=== PATIENT | male | born 1980 | race Caucasian/White ===

== ENCOUNTER 2020-03-12 01:47 | Emergency (ER) | payer SELFPAY ==
[2020-03-12] VITALS (41 sets, daily range): BP systolic 112–156; BP diastolic 52–92; PULSE 55–100; RESP 10–26; TEMP 36.7; O2SAT 90–98; BMI 26.4
--- NOTE | 2020-03-12 01:51 | XR_ITS ---
WS: [id number] Exam: XR chest 1V portable [id number] Date/Time of Exam: 03/12/2020 1:53 AM Reason For Exam: Altered mental status Comparison 03/28/2019. Findings: The lungs are clear and fully expanded. Costophrenic angles are sharp. No infiltrates. Bronchovascula r relief appears normal. Cardiac silhouette is unremarkable. Bony elements are intact. XR/XR chest 1V portable [id number] IMPRESSION: Unremarkable chest radiograph.
--- NOTE | 2020-03-12 01:51 | CTR_ITS ---
PROCEDURE INFORMATION: Exam: CT Head Without Contrast Exam date and time: 03/12/2020 1:53 AM Age: 40 years old Clinical indication: Altered mental status/memory loss; Confusion or disorientation TECHNIQUE: Imaging protocol: Computed tomography of the head without contrast. Radiation optimization: All CT scans at this facility use at least one of these dose optimization techniques: automated exposure control; mA and/or kV adjustment per patient size (includes targeted exams where dose is matched to clinical indication); or iterative reconstruction. COMPARISON: CT head wo con* [id number] 01/30/2018 11:48 PM RADIATION DOSE METRICS: Total DLP (mGy-cm): 912.22 FINDINGS: Brain: No acute intracranial hemorrhage or mass effect. No definite acute infarct by CT. MRI could be more sensitive/specific for detection, as clinically directed. Cerebral ventricles: Ventricle size is normal for age. Bones/joints: No definite acute skull fracture. Paranasal sinuses: Included paranasal sinuses are essentially clear. Mastoid air cells: No significant acute finding. CT/CT head wo con* [id number] IMPRESSION: 1. No acute intracranial hemorrhage or mass effect. 2. No definite acute infarct by CT, see above. 3. Other findings discussed above. Radiation Dose CTDIVOL = (mGy): DLP = 912.22 (mGy-cm)
--- NOTE | 2020-03-12 01:52 | ECG_ITS ---
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
[2020-03-12 02:12] LABS: Basophils % 0.8 %; Eosinophils # 0.1 10^3/uL (0.0-0.8); Eosinophils % 1.8 %; Hematocrit 43.2 % (42.0-52.0); Hemoglobin 14.4 g/dL (11.7-16.6); Lymphocytes # 1.9 10^3/uL (0.8-4.8); Lymphocytes % 38.8 %; Mean Corpuscular HGB Conc 33.3 g/dL (30.0-36.0); Mean Corpuscular Hemoglobin 32.2 pg (28.0-34.0); Mean Corpuscular Volume 96.6 fL (80-94); Mean Platelet Volume 10.7 fL (7.4-10.4); Monocytes # 0.6 10^3/uL (0.2-0.9); Monocytes % 13.1 %; Neutrophils # 2.23 10^3/uL (1.8-7.7); Neutrophils % 45.5 %; Nucleated Red Blood Cells % 0 %; Platelet Count 182 10^3/cmm (130-400); Red Blood Count 4.47 10^6/uL (4.1-5.3); Red Cell Distribution Width 12.3 % (12.1-15.1); White Blood Count 4.9 10^3/uL (4.0-10.0)
[2020-03-12] MEDS: sodium chloride 0.9% 1,000 ML 100 ML IV (02:15)
[2020-03-12] MEDS: ondansetron 2 mg/ML SDV 2 mL 4 MG IVP (02:15)
[2020-03-12] MEDS: naloxone 0.4 mg/ml SDV IVP (02:22)
--- NOTE | 2020-03-12 02:25 | W.ED.OVERDOS ---
HPI - Overdose General: Chief Complaint: Overdose Stated Complaint: overdose Time Seen by Provider: 03/12/20 01:50 Source: patient and EMS Mode of arrival: EMS Limitations: altered mental status History of Present Illness: HPI Narrative: Josias is a 40-year-old male who is brought in by EMS with report of overdose. Patient apparently used heroin today an effort to get high. He states he has not used in a long time. He was found by friends who did not detect a pulse and started CPR. Is unclear whether he truly had a loss of pulse. CPR was done for less than a minute and someone, it is believed a figure model administered intranasal Narcan. After 1 dose of intranasal Narcan the patient immediately arose and admitted to the the drug use. Patient is adamant he was not trying to hurt or kill himself. He states he was just trying to get high. He denies any other ingestions such as alcohol, benzodiazepines or other illicit drug. Review of Systems Const: Denies: fever(s), chills, body aches, fatigue, malaise or diaphoresis Eyes: Denies: change in vision, blurry vision, photophobia, eye discomfort, eye discharge, eye redness or yellow eyes ENMT: Denies: throat pain, odynophagia, hoarseness, swelling of lips/tongue, ear or mastoid pain, ear discharge, change in hearing or nasal discharge Card: Denies: chest pain, palpitations, irregular heart rhythm, edema, lightheadedness, syncope, pre-syncope, dyspnea on exertion or orthopnea Resp: Denies: dyspnea, productive cough, non-productive cough, wheezing, hemoptysis or chest congestion GI: Denies: abdominal pain, nausea, vomiting, hematemesis, coffee ground emesis, heartburn, diarrhea, constipation, GI cramping, hematochezia or melena : Denies: flank pain, dysuria, urinary frequency, urinary urgency or hematuria Musc: Denies: neck pain, back pain, extremity pain, extremity swelling, joint pain, joint swelling, joint redness, joint warmth or joint stiffness Skin/Breast: Denies: rash, pruritus, erythema, skin pain or skin tenderness Neuro: Denies: headache(s), numbness in extremities, weakness in extremities, sensory changes, lack of coordination, difficulty walking, dizziness, vertigo, confusion, Slurred speech present or seizure-like activity Davon/Lymph: Denies: easy bruising, easy bleeding, petechiae, purpura or enlarged lymph nodes All/Imm: Denies: urticaria, throat swelling, tongue swelling, facial swelling or acute wheezing PFSH ED PFSH: Medical History (Updated 03/12/20 @ 06:09 by Ariadna Cisneros) Hepatitis C Physical Exam Const: COMMON NORMALS: no acute distress, no limitations and alert GENERAL APPEARANCE: cooperative HENMT: COMMON NORMALS: normocephalic, atraumatic, external ears normal, EAC's normal and Normal external nose present HEAD & SCALP: normal to inspection, normocephalic and atraumatic FACE & SINUS: normal facial exam and face symmetric NOSE: Normal external nose present and Normal nares present EXTERNAL EAR: Yes external ears normal EXTERNAL AUDITORY CANAL: EAC's normal MOUTH: Normal oral and palatal mucosa present, lip normal and tongue normal Eye: COMMON NORMALS: Equal, round and reactive pupils present and conjunctivae normal GENERAL EYE: appearance normal, both eyes and all related structures ALIGNMENT: Yes alignment normal PERIORBITAL: periorbital findings normal EYELID: eyelids normal CONJUNCTIVA: Yes conjunctivae normal SCLERA: sclerae normal PUPIL: Yes Equal, round and reactive pupils present Neck/C-Spine: COMMON NORMALS: full ROM, no lymphadenopathy, supple, no meningeal signs and no JVD GENERAL: Yes normal visual inspection and Yes trachea midline Chest: COMMONS NORMALS: normal inspection of the chest and normal palpation of entire chest wall Resp: COMMON NORMALS: normal respiratory effort, No retractions, No use of accessory muscles and clear to auscultation bilaterally EFFORT & INSPECTION: Yes able to speak in complete sentences and Yes symmetric chest movement AUSCULTATION: clear to auscultation bilaterally, no crackles, no rales, no rhonchi and no wheezes Cardio: COMMON NORMALS: no JVD, regular rate, regular rhythm, S1 normal heart sound present and S2 normal heart sound present RATE: regular rate RHYTHM: regular rhythm HEART SOUNDS: S1 normal heart sound present, S2 normal heart sound present, no click, no gallops, no murmurs and no rubs GI: COMMON NORMALS: Soft to palpation and No hepatosplenomegaly present PALPATION: Yes Soft to palpation, No Tenderness to palpation present (GI), No Guarding due to palpation present (GI), No Rigid due to palpation, Yes No hepatosplenomegaly present, No Hernia present, No Palpable mass present and No Pulsatile mass present : COMMON NORMALS: Yes no CVA tenderness BLADDER/KIDNEY EXAM: Yes no CVA tenderness Back/Pelvis: COMMON NORMALS: no CVA tenderness, thoracic and lumbar spine normal to inspection, no thoracic nor lumbar tenderness and thoraco-lumbar ROM normal Extremity: COMMON NORMALS: normal to inspection, full ROM, capillary refill normal, no joint enlargement, no clubbing, cyanosis or edema and no calf tenderness Neuro: COMMON NORMALS: CN's II-XII intact bilaterally, moves all extremities, no focal motor deficits and no sensory deficits noted SENSORIUM/ORIENTATION: Yes alert MENINGEAL SIGNS: Yes no meningeal signs SPEECH: speech normal Psych: COMMON NORMALS: mental status grossly normal, Normal thought process present, cooperative, normal affect, speech normal and activity/motor behavior normal SPEECH: Yes normal speech THOUGHT PROCESS: Normal thought process present Skin: COMMON NORMALS: no rashes or lesions noted, turgor normal, no jaundice, no petechiae and no mottling GENERAL SKIN EXAM: no rashes or lesions noted and turgor normal Course Vital Signs: Vital signs: Vital Signs Temperature 98.0 F 03/12/20 01:52 Pulse Rate 81 03/12/20 06:00 Respiratory Rate 14 03/12/20 06:00 Blood Pressure 135/56 03/12/20 06:00 Pulse Oximetry 96 03/12/20 06:00 MDM - Overdose MDM Narrative: Medical decision making narrative: Arrival -Josias is a 40-year-old male who comes in with altered mental status. He had 2 minutes of bystander CPR but believes he was just oversedated by heroin. He denies using heroin to kill himself but instead just to get high. Vital signs are stable. We have given him Narcan 0.4 mg in total in 2 divided doses. He was able to wake up easily with this. With this he is alert and oriented and had no complaints. He denies chest pain, abdominal pain and did not have any other complaint. We will initiated altered status/overdose work-up. 0607 -Josias has maintained his mental status of a GCS of 14 since arriving. He is not necessitated any further Narcan. Patient though will not wake up long enough or cooperate long enough for me to feel safe sending him home. I do not believe he will need emergent intervention at this time but until he can wake up and completely cooperate consistently I believe he will need to be observed. I reviewed the case in full with Dr. Sarmiento and he agrees to admission. Further care will be dictated by him. Lab Data: Attestation: I reviewed the patient's lab results. Labs: Lab Results 03/12/20 03/12/20 03/12/20 Range/Units 02:08 02:08 02:08 WBC 4.9 (4.0-10.0) 10^3/ uL RBC 4.47 (4.1-5.3) 10^6/u L Hgb 14.4 (11.7-16.6) g/dL Hct 43.2 (42.0-52.0) % MCV 96.6 H (80-94) fL MCH 32.2 (28.0-34.0) pg MCHC 33.3 (30.0-36.0) g/dL RDW 12.3 (12.1-15.1) % Plt Count 182 (130-400) 10^3/c mm MPV 10.7 H (7.4-10.4) fL Neut % (Auto) 45.5 % Lymph % (Auto) 38.8 % [place] % (Auto) 13.1 % Eos % (Auto) 1.8 % Baso % (Auto) 0.8 % Neut # (Auto) 2.23 (1.8-7.7) 10^3/u L Lymph # (Auto) 1.9 (0.8-4.8) 10^3/u L [place] # (Auto) 0.6 (0.2-0.9) 10^3/u L Eos # (Auto) 0.1 (0.0-0.8) 10^3/u L Baso # (Auto) 0.0 (0.0-0.1) 10^3/u L Nucleated RBC % (a uto) 0 % Nucleated RBCs # 0.0 /100WBC PT (12.1-14.9) SECO NDS INR (0.8-1.2) APTT (23.9-36.7) SECO NDS Sodium 139 (136-145) mmol/L Potassium 4.1 (3.5-5.1) mmol/L Chloride 102 (98-107) mmol/L Carbon Dioxide 28 (22-29) mmol/L Anion Gap 13.1 (5-19) BUN 14 (6-20) mg/dL Creatinine 1.1 (0.7-1.2) mg/dL GFR Calculation 74.9 L (90-130) mL/min Glucose 112 (65-115) mg/dL Calculated Osmolal ity 289 (285-295) mOsm/k g Calcium 9.8 (8.5-10.5) mg/dL Magnesium 2.3 (1.7-2.3) mg/dL Total Bilirubin 0.5 (0.15-1.2) mg/dL AST 305 H (0-40) U/L ALT 470 H (0-41) U/L Alkaline Phosphata se 151 H (40-130) IU/L Creatine Kinase 495 H* (39-308) U/L Troponin T Baselin e 6 (0-15) ng/L Total Protein 7.5 (6.6-8.7) g/dL Albumin 4.5 (3.5-5.2) g/dL Globulin 3.0 (1.3-4.6) g/dL Ethyl Alcohol < 10 (0-10) mg/dL Hepatitis A IgM Ab (Nonreactive) Hep Bs Antigen (Nonreactive) Hep Bs Antibody (0-8.5) Hep B Core Total A b (Nonreactive) Hepatitis C Antibo dy (Nonreactive) 03/12/20 03/12/20 Range/Units 02:10 02:15 WBC (4.0-10.0) 10^3/ uL RBC (4.1-5.3) 10^6/u L Hgb (11.7-16.6) g/dL Hct (42.0-52.0) % MCV (80-94) fL MCH (28.0-34.0) pg MCHC (30.0-36.0) g/dL RDW (12.1-15.1) % Plt Count (130-400) 10^3/c mm MPV (7.4-10.4) fL Neut % (Auto) % Lymph % (Auto) % [place] % (Auto) % Eos % (Auto) % Baso % (Auto) % Neut # (Auto) (1.8-7.7) 10^3/u L Lymph # (Auto) (0.8-4.8) 10^3/u L [place] # (Auto) (0.2-0.9) 10^3/u L Eos # (Auto) (0.0-0.8) 10^3/u L Baso # (Auto) (0.0-0.1) 10^3/u L Nucleated RBC % (a uto) % Nucleated RBCs # /100WBC PT 14.90 (12.1-14.9) SECO NDS INR 1.13 (0.8-1.2) APTT 30.3 (23.9-36.7) SECO NDS Sodium (136-145) mmol/L Potassium (3.5-5.1) mmol/L Chloride (98-107) mmol/L Carbon Dioxide (22-29) mmol/L Anion Gap (5-19) BUN (6-20) mg/dL Creatinine (0.7-1.2) mg/dL GFR Calculation (90-130) mL/min Glucose (65-115) mg/dL Calculated Osmolal ity (285-295) mOsm/k g Calcium (8.5-10.5) mg/dL Magnesium (1.7-2.3) mg/dL Total Bilirubin (0.15-1.2) mg/dL AST (0-40) U/L ALT (0-41) U/L Alkaline Phosphata se (40-130) IU/L Creatine Kinase (39-308) U/L Troponin T Baselin e (0-15) ng/L Total Protein (6.6-8.7) g/dL Albumin (3.5-5.2) g/dL Globulin (1.3-4.6) g/dL Ethyl Alcohol (0-10) mg/dL Hepatitis A IgM Ab Non-reactive (Nonreactive) Hep Bs Antigen Non-reactive (Nonreactive) Hep Bs Antibody > 1000.0 H (0-8.5) Hep B Core Total A b Non-reactive (Nonreactive) Hepatitis C Antibo dy Reactive H (Nonreactive) Imaging Data^: CXR: Attestation: I personally reviewed and interpreted this imaging study as follows: My impression: No acute cardiopulmonary findings. CT Head: Radiologist's impression: [facility] [address] [place] [address] CT Scan Report Signed Patient: Josias Murillo #: [id number] : 1980Acct#:[id number] Age/Sex: 40 / MADM Date: 03/12/20 Loc: ERRoom/Bed: Attending Dr: Ordering Provider/Ordering MD: Ariadna Cisneros DO Date of Service: 03/12/20 Procedure(s): CT head wo con* [id number] Accession Number(s): [id number] Report Number: [id number] PROCEDURE INFORMATION: Exam: CT Head Without Contrast Exam date and time: 03/12/2020 1:53 AM Age: 40 years old Clinical indication: Altered mental status/memory loss; Confusion or disorientation TECHNIQUE: Imaging protocol: Computed tomography of the head without contrast. Radiation optimization: All CT scans at this facility use at least one of these dose optimization techniques: automated exposure control; mA and/or kV adjustment per patient size (includes targeted exams where dose is matched to clinical indication); or iterative reconstruction. COMPARISON: CT head wo con* [id number] 01/30/2018 11:48 PM RADIATION DOSE METRICS: Total DLP (mGy-cm): 912.22 FINDINGS: Brain: No acute intracranial hemorrhage or mass effect. No definite acute infarct by CT. MRI could be more sensitive/specific for detection, as clinically directed. Cerebral ventricles: Ventricle size is normal for age. Bones/joints: No definite acute skull fracture. Paranasal sinuses: Included paranasal sinuses are essentially clear. Mastoid air cells: No significant acute finding. CT/CT head wo con* [id number] IMPRESSION: 1. No acute intracranial hemorrhage or mass effect. 2. No definite acute infarct by CT, see above. 3. Other findings discussed above. Radiation Dose CTDIVOL = (mGy): DLP = 912.22 (mGy-cm) Dictated By:Davie Guerrero MD Signed By:Davie Guerrero MDSigned Date/Time:03/12/20305 DD/ 4 EKG Data^: EKG 1: Attestation: I personally reviewed and interpreted this EKG as follows: EKG interpretation date: 03/12/20 EKG interpretation time: 02:34 Interpretation: Normal sinus rhythm at 74 beats a minute, normal intervals, incomplete right bundle branch block, nonspecific ST and T wave changes. EKG 2: Attestation: I personally reviewed and interpreted this EKG as follows: EKG interpretation date: 03/12/20 EKG interpretation time: 04:21 Interpretation: Normal sinus rhythm at 72 beats a minute, incomplete right bundle much block, normal axis, no acute ST-T wave changes. Discharge Plan Discharge Patient Disposition: Placed in Observation Clinical Impression: Drug overdose Condition: Stable Coding Level of Care Code ED Crystal Evaluator for Chg Fwd Exam Comprehensive
--- NOTE | 2020-03-12 02:29 | PC.NURSE ---
patient unable to answer SI questions for nurse during assessment. patient drifting in and out of sleep.
[2020-03-12 02:34] LABS: Alanine Aminotransferase 470 U/L (0-41); Albumin Level 4.5 g/dL (3.5-5.2); Alkaline Phosphatase 151 IU/L (40-130); Anion Gap 13.1 (5-19); Aspartate Amino Transferase 305 U/L (0-40); Blood Urea Nitrogen 14 mg/dL (6-20); Calcium 9.8 mg/dL (8.5-10.5); Carbon Dioxide 28 mmol/L (22-29); Chloride 102 mmol/L (98-107); Glomerular Filtration Rate 74.9 mL/min (90-130); Glucose 112 mg/dL (65-115); Magnesium 2.3 mg/dL (1.7-2.3); Osmolality Calculated 289 mOsm/kg (285-295); Potassium 4.1 mmol/L (3.5-5.1); Sodium 139 mmol/L (136-145); Total Bilirubin 0.5 mg/dL (0.15-1.2); Total Protein 7.5 g/dL (6.6-8.7)
[2020-03-12 02:35] LABS: Alcohol Level < 10 mg/dL (0-10); Creatine Phosphokinase 495 U/L (39-308)
[2020-03-12 02:36] LABS: Troponin(5th) Baseline 6 ng/L (0-15)
--- NOTE | 2020-03-12 02:40 | PC.NURSE ---
patient to CT
[2020-03-12 03:50] LABS: Hepatitis A Antibody IgM Non-Reactive (Nonreactive); Hepatitis B Core AB, Total Non-Reactive (Nonreactive); Hepatitis B Surface Antigen Non-Reactive (Nonreactive); Hepatitis C Virus Antibody Reactive (Nonreactive)
--- NOTE | 2020-03-12 03:50 | PC.NURSE ---
patient woken by nurse with verbal command. patient answers nurses questions and opens eyes.
--- NOTE | 2020-03-12 03:52 | ECG_ITS ---
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
[2020-03-12 04:08] LABS: Hepatitis B Surface AB > 1000.0 (0-8.5)
--- NOTE | 2020-03-12 04:24 | PC.NURSE ---
EKG done at 421 and shown to ER doctor
[2020-03-12 05:05] LABS: INR 1.13 (0.8-1.2)
[2020-03-12 05:06] LABS: Partial Thromboplastin Time 30.3 SECONDS (23.9-36.7)
[2020-03-12 06:20] LABS: Acetaminophen < 5.0 ug/mL (10-30); Alcohol Level < 10 mg/dL (0-10); Salicylate < 0.3 mg/dL (3-10)
--- NOTE | 2020-03-12 07:52 | ECG_ITS ---
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1980 Requested By: Ariadna Lala Order Number: [id number] Andrea MD: KARLA AHUMADA Measurements Intervals [place] Rate: 58 P: 38 [place]: 151 QRS: 89 QRSD: 112 T: 51 QT: 401 QTc: 395 Interpretive Statements SINUS BRADYCARDIA INCOMPLETE RIGHT BUNDLE BRANCH BLOCK [90+ ms QRS DURATION, TERMINAL R IN V1/V2, 40+ ms S IN I/aVL/V4/V5/V6] Compared to ECG 03/12/2020 04:21:58 Sinus rhythm no longer present Electronically Signed On 03-12-2020 18:22:56 CDT by KARLA AHUMADA [email or web address]/store/[id number]
[2020-03-12 08:36] LABS: Add Urine Microscopic? YES; Bilirubin Urine Neg (Negative); Blood Urine Neg (Negative); Glucose Urine UA Norm (Normal); Ketones Urine Negative (Negative); Leukocyte Esterase Urine Negative (Negative); Nitrate Urine Negative (Negative); Protein Urine 1+ (Negative); Urine Appearance Clear (CLEAR); Urine Color Yellow (Yellow); Urobilinogen Urine 8 mg/dL (Negative); pH Urine 5 (5-7)
[2020-03-12 08:36] LABS: Amphetamines Screen Urine Positive (Negative); Barbiturates Screen Urine Negative (Negative); Benzodiazepines Screen Urine Negative (Negative); Cocaine Screen Urine Negative (Negative); Opiate Screen Urine Negative (Negative); PCP Screen Urine Negative (Negative); THC Screen Urine Negative (Negative)
[2020-03-12 08:38] LABS: Add Urine Culture? No; Bacteria Urine TRACE /hpf; Hyaline Casts Urine RARE /lpf; Mucus Urine TRACE /hpf; RBC Urine 0-4 /hpf (0-2); Squamous Epithelial Cell Urine RARE /hpf (0-5); WBC Urine 0-4 /hpf (0-5)
--- NOTE | 2020-03-12 09:15 | P.HP_ITS ---
Providers/Chief Complaint Chief Complaint: overdose History of Present Illness Josias Murillo JR is a 40 year old male with a past medical history of hepatitis C that presented to the emergency department today after found down by friends. There was question if patient did not have a pulse and CPR was started and EMS was called. CPR was performed for less than 1 minute and then EMS a dministered Narcan. After 1 dose of intranasal Narcan patient immediately arose and was brought to the ER for further evaluation. Patient was seen and evaluated in the emergency department given patient on doses of Narcan but continued to have significant lethargy. Patient was admitted to the hospital for further evaluation and treatment. At time of my exam patient is awake but remains drowsy, reports that he was only using heroin to get high, has no thoughts of harming himself or harming anyone else. 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 Stated that he uses it multiple times per day, at least twice a day. Stated that he will typically use 3 to 4 g of heroin per day. Patient reports injecting heroin into the right AC. Reports tobacco use and also alcohol use. Review of Systems Const: Denies: fever(s) or chills Eyes: Denies: change in vision ENMT: Denies: nasal congestion Card: Denies: chest pain, palpitations or edema Resp: Denies: dyspnea, productive cough or hemoptysis GI: Denies: abdominal pain, nausea, vomiting, diarrhea, constipation, hematochezia or melena : Denies: dysuria or hematuria Musc: Denies: extremity pain or muscle cramps Skin/Breast: Denies: rash or new lesions Neuro: Reports: dizziness; Denies: headache(s) Psych: Denies: anxiety or depression Endo: Denies: polyuria or hot flashes Davon/Lymph: Denies: easy bruising or easy bleeding Medications/Allergies Home Medications Medication Instructions Recorded Confirmed Last Taken Type No Known Home Medications 03/12/20 03/12/20 Unknown History Allergies Allergy/AdvReac Type Severity Reaction Status Date / Time No Known Allergies Allergy Verified 03/12/20 06:12 PFSH Acute PFSH: Medical History Hepatitis C Surgical History (Updated 03/12/20 @ 09:18 by Susie Eduardo DO) History of hand surgery Right hand Social History (Updated 03/12/20 @ 09:18 by Susie Eduardo DO) Smoking and tobacco status: current every day smoker cigarettes Alcohol intake: current Substance/Drug Use: current Substance/Drug use frequency: daily Substance/Drug use type: Heroin and IV Drugs Vitals/I&O/Wt Last Vital Signs Temp 98.0 F 03/12/20 01:52 Pulse 67 03/12/20 06:39 Resp 18 03/12/20 06:39 BP 130/52 03/12/20 06:39 Pulse Ox 95 03/12/20 06:39 Weight last 48 hrs Weight 88.451 kg Physical Exam Const: COMMON NORMALS: patient oriented x3 GENERAL APPEARANCE: cooperative ORIENTATION/CONSCIOUSNESS: Yes awake, Yes oriented to person, Yes oriented to place, Yes oriented to time and Yes lethargic HENMT: COMMON NORMALS: normocephalic and atraumatic HEAD & SCALP: normocephalic and atraumatic Eye: COMMON NORMALS: Equal, round and reactive pupils present PUPIL: Yes Equal, round and reactive pupils present Neck/C-Spine: COMMON NORMALS: supple GENERAL: Yes normal visual inspection Resp: COMMON NORMALS: normal respiratory effort and clear to auscultation b ilaterally EFFORT & INSPECTION: Yes able to speak in complete sentences AUSCULTATION: clear to auscultation bilaterally, no rhonchi and no wheezes Cardio: COMMON NORMALS: regular rate, regular rhythm and No murmurs present (Cardio) RATE: regular rate RHYTHM: regular rhythm GI: COMMON NORMALS: Soft to palpation and non-tender INSPECTION: No abdominal distension AUSCULTATION: Yes normoactive bowel sounds PALPATION: Yes Soft to palpation Extremity: COMMON NORMALS: no clubbing, cyanosis or edema and no calf tenderness Neuro: COMMON NORMALS: CN's II-XII intact bilaterally, moves all extremities and no focal motor deficits SENSORIUM/ORIENTATION: Yes alert, Yes oriented to person, Yes oriented to place and Yes oriented to time SPEECH: speech normal OTHER: Patient lethargic, falls asleep during exam but will open his eyes and responds to voice Psych: COMMON NORMALS: cooperative OTHER: Denies suicidal or homicidal ideation, denies any hallucinations Skin: COMMON NORMALS: no rashes or lesions noted GENERAL SKIN EXAM: no rashes or lesions noted Data : 03/12/20 02:08 03/12/20 02:08 CT Head: I personally reviewed and interpreted this imaging study as follows: Radiologist's impression: FINDINGS: Brain: No acute intracranial hemorrhage or mass effect. No definite acute infarct by CT. MRI could be more sensitive/specific for detection, as clinically directed. Cerebral ventricles: Ventricle size is normal for age. Bones/joints: No definite acute skull fracture. Paranasal sinuses: Included paranasal sinuses are essentially clear. Mastoid air cells: No significant acute finding. CT/CT head wo con* [id number] IMPRESSION: 1. No acute intracranial hemorrhage or mass effect. 2. No definite acute infarct by CT, see above. 3. Other findings discussed above. CXR: I personally reviewed and interpreted this imaging study as follows: Radiologist's impression: Findings: The lungs are clear and fully expanded. Costophrenic angles are sharp. No infiltrates. Bronchovascular relief appears normal. Cardiac silhouette is unremarkable. Bony elements are intact. XR/XR chest 1V portable [id number] IMPRESSION: Unremarkable chest radiograph. A&P Assessment and plan (1) Drug overdose: IV heroin overdose Admit to ICU for close monitoring Narcan as needed Patient denies any suicidal or homicidal ideation, no affidavit was placed on the chart at time of arrival, no indication at this time Discussed with patient the recommendation for outpatient drug and alcohol rehabilitation, patient is agreeable for further information, will consult case management to provide patient with further information Patient reports using unclean needles, positive for hepatitis C, agreeable to HIV testing Status: Acute Qualifiers: Encounter type: initial encounter Injury intent: accidental or unintentional Qualified Code(s): T50.901A - Poisoning by unspecified drugs, medicaments and biological substances, accidental (unintentional), initial encounter (2) Hepatitis C: Status: Acute Attestations Medical Necessity Statement*: Patient due to heroin overdose, expected stay less than 2 midnights Coding Level of Care Code Acute Sugar Mixer for [facility] Fwd Diagnoses Drug overdose T50.901A Encounter type: initial encounter Injury intent: accidental or unintentional Hepatitis C B19.20
[2020-03-12 09:34] LABS: Troponin 5 6HR 9.37 ng/L (0-15); Troponin 5 6HR Delta 3.37 ng/L (0-12)
--- NOTE | 2020-03-12 11:02 | DCPLANNER ---
market research manager was asked to call [facility] to see if the facility had any beds. market research manager called [facility] was told that they did not have any beds available at this time. market research manager informed the ED physician of this, and the patient that [facility] did not have any beds. market research manager gave patient the book of community resources with rehab and treatment centers. market research manager also gave patient a brochure for [facility] for counseling.
--- NOTE | 2020-03-12 15:53 | P.DS_ITS ---
Discharge Providers Date of Discharge: March 12, 2020 Diagnoses at Discharge Discharge Diagnosis (1) Drug overdose: Status: Acute Qualifiers: Encounter type: initial encounter Injury intent: accidental or unintentional Qualified Code(s): T50.901A - Poisoning by unspecified drugs, medicaments and biological substances, accidental (unintentional), initial encounter (2) Hepatitis C: Status: Acute Qualifiers: Hepatic coma status: without hepatic coma Viral hepatitis chronicity: unspecified Qualified Code(s): B19.20 - Unspecified viral hepatitis C without hepatic coma Reason for Visit Reason for Visit: overdose Hospital Course Hospital Course: Patient was brought into the emergency department due to concern for found unresponsive. He was noted to have a heroin overdose. He was given Narcan and monitored in the ER. He continued to have improvement of symptoms and denied any suicidal or homicidal ideation. He was reevaluated in the emergency department and discharged to home by Dr. Franco Physical Exam Narrative: EXAM NARRATIVE: As documented in previous documentation Discharge Data Data Completed and Pending: Completed Studies During Hospitalization Category Date Time Status CT head wo con* [id number] Stat Cat Scan 03/12/20 01:51 Completed XR chest 1V ciaran ble [id number] Stat Exams 03/12/20 01:51 Completed Pending at discharge Category Date Time Status Arterial Blood Ga s W/O Coox Stat Lab 03/12/20 02:07 Received Labs from last 24 hours 03/12/20 03/12/20 03/12/20 08:08 08:07 08:03 WBC RBC Hgb Hct MCV MCH MCHC RDW Plt Count MPV Neut % (Auto) Lymph % (Auto) [place] % (Auto) Eos % (Auto) Baso % (Auto) Neut # (Auto) Lymph # (Auto) [place] # (Auto) Eos # (Auto) Baso # (Auto) Nucleated RBC % (a uto) Nucleated RBCs # PT INR APTT Specimen Type Sample Site ABG pH ABG pCO2 ABG pO2 ABG HCO3 ABG Base Excess Prince Test Hematocrit O2 Delivery Device Sales And In Home Delivery Specialist ID Sodium Potassium Chloride Carbon Dioxide Anion Gap BUN Creatinine GFR Calculation Glucose Calculated Osmolal ity Calcium Magnesium Total Bilirubin AST ALT Alkaline Phosphata se Creatine Kinase Troponin T Baselin e Troponin T 120 Min [place] Troponin T Troponin T Hi Sens 6Hr 9.37 Troponin T Hi Sens 6Hr Delta 3.37 Total Protein Albumin Globulin Urine Color Yellow Urine Appearance Clear Urine pH 5 Ur Specific Gravit y 1.020 Urine Protein 1+ H Urine Glucose (UA) Norm Urine Ketones Negative Urine Blood Neg Urine Nitrate Negative Urine Bilirubin Neg Urine Urobilinogen 8 H Ur Leukocyte Agnieszka ase Negative Urine RBC 0-4 H Urine WBC 0-4 H Ur Squamous Epith Cells Rare Amorphous Sediment Not Reportable Urine Bacteria Trace Hyaline Casts Rare Urine Mucus Trace Salicylates Urine Opiates Scre en Negative Acetaminophen Ur Barbiturates Sc reen Negative Ur Phencyclidine S crn Negative Ur Amphetamines Sc reen Positive H U Benzodiazepines Scrn Negative Urine Cocaine Scre en Negative U Marijuana (THC) Screen Negative Ethyl Alcohol Hepatitis A IgM Ab Hep Bs Antigen Hep Bs Antibody Hep B Core Total A b Hepatitis C Antibo dy 03/12/20 03/12/20 03/12/20 05:58 04:00 02:15 WBC RBC Hgb Hct MCV MCH MCHC RDW Plt Count MPV Neut % (Auto) Lymph % (Auto) [place] % (Auto) Eos % (Auto) Baso % (Auto) Neut # (Auto) Lymph # (Auto) [place] # (Auto) Eos # (Auto) Baso # (Auto) Nucleated RBC % (a uto) Nucleated RBCs # PT 14.90 INR 1.13 APTT 30.3 Specimen Type Sample Site ABG pH ABG pCO2 ABG pO2 ABG HCO3 ABG Base Excess Prince Test Hematocrit O2 Delivery Device Sales And In Home Delivery Specialist ID Sodium Potassium Chloride Carbon Dioxide Anion Gap BUN Creatinine GFR Calculation Glucose Calculated Osmolal ity Calcium Magnesium Total Bilirubin AST ALT Alkaline Phosphata se Creatine Kinase Troponin T Baselin e Troponin T 120 Min [place] 9.30 Delta Troponin T 3.30 Troponin T Hi Sens 6Hr Troponin T Hi Sens 6Hr Delta Total Protein Albumin Globulin Urine Color Urine Appearance Urine pH Ur Specific Gravit y Urine Protein Urine Glucose (UA) Urine Ketones Urine Blood Urine Nitrate Urine Bilirubin Urine Urobilinogen Ur Leukocyte Agnieszka ase Urine RBC Urine WBC Ur Squamous Epith Cells Amorphous Sediment Urine Bacteria Hyaline Casts Urine Mucus Salicylates < 0.3 L Urine Opiates Scre en Acetaminophen < 5.0 L Ur Barbiturates Sc reen Ur Phencyclidine S crn Ur Amphetamines Sc reen U Benzodiazepines Scrn Urine Cocaine Scre en U Marijuana (THC) Screen Ethyl Alcohol < 10 Hepatitis A IgM Ab Hep Bs Antigen Hep Bs Antibody Hep B Core Total A b Hepatitis C Antibo dy 1003/12/20 03/12/20 02:10 02:08 02:08 WBC RBC Hgb Hct MCV MCH MCHC RDW Plt Count MPV Neut % (Auto) Lymph % (Auto) [place] % (Auto) Eos % (Auto) Baso % (Auto) Neut # (Auto) Lymph # (Auto) [place] # (Auto) Eos # (Auto) Baso # (Auto) Nucleated RBC % (a uto) Nucleated RBCs # PT INR APTT Specimen Type Sample Site ABG pH ABG pCO2 ABG pO2 ABG HCO3 ABG Base Excess Prince Test Hematocrit O2 Delivery Device Sales And In Home Delivery Specialist ID Sodium 139 Potassium 4.1 Chloride 102 Carbon Dioxide 28 Anion Gap 13.1 BUN 14 Creatinine 1.1 GFR Calculation 74.9 L Glucose 112 Calculated Osmolal ity 289 Calcium 9.8 Magnesium 2.3 Total Bilirubin 0.5 AST 305 H ALT 470 H Alkaline Phosphata se 151 H Creatine Kinase 495 H* Troponin T Baselin e 6 Troponin T 120 Min [place] Delta Troponin T Troponin T Hi Sens 6Hr Troponin T Hi Sens 6Hr Delta Total Protein 7.5 Albumin 4.5 Globulin 3.0 Urine Color Urine Appearance Urine pH Ur Specific Gravit y Urine Protein Urine Glucose (UA) Urine Ketones Urine Blood Urine Nitrate Urine Bilirubin Urine Urobilinogen Ur Leukocyte Agnieszka ase Urine RBC Urine WBC Ur Squamous Epith Cells Amorphous Sediment Urine Bacteria Hyaline Casts Urine Mucus Salicylates Urine Opiates Scre en Acetaminophen Ur Barbiturates Sc reen Ur Phencyclidine S crn Ur Amphetamines Sc reen U Benzodiazepines Scrn Urine Cocaine Scre en U Marijuana (THC) Screen Ethyl Alcohol < 10 Hepatitis A IgM Ab Non-reactive Hep Bs Antigen Non-reactive Hep Bs Antibody > 1000.0 H Hep B Core Total A b Non-reactive Hepatitis C Antibo dy Reactive H 03/12/20 03/12/20 02:08 02:07 WBC 4.9 RBC 4.47 Hgb 14.4 Hct 43.2 MCV 96.6 H MCH 32.2 MCHC 33.3 RDW 12.3 Plt Count 182 MPV 10.7 H Neut % (Auto) 45.5 Lymph % (Auto) 38.8 [place] % (Auto) 13.1 Eos % (Auto) 1.8 Baso % (Auto) 0.8 Neut # (Auto) 2.23 Lymph # (Auto) 1.9 [place] # (Auto) 0.6 Eos # (Auto) 0.1 Baso # (Auto) 0.0 Nucleated RBC % (a uto) 0 Nucleated RBCs # 0.0 PT INR APTT Specimen Type Pending Sample Site Pending ABG pH Pending ABG pCO2 Pending ABG pO2 Pending ABG HCO3 Pending ABG Base Excess Pending Prince Test Pending Hematocrit Pending O2 Delivery Device Pending Sales And In Home Delivery Specialist ID Pending Sodium Potassium Chloride Carbon Dioxide Anion Gap BUN Creatinine GFR Calculation Glucose Calculated Osmolal ity Calcium Magnesium Total Bilirubin AST ALT Alkaline Phosphata se Creatine Kinase Troponin T Baselin e Troponin T 120 Min [place] Troponin T Troponin T Hi Sens 6Hr Troponin T Hi Sens 6Hr Delta Total Protein Albumin Globulin Urine Color Urine Appearance Urine pH Ur Specific Gravit y Urine Protein Urine Glucose (UA) Urine Ketones Urine Blood Urine Nitrate Urine Bilirubin Urine Urobilinogen Ur Leukocyte Agnieszka ase Urine RBC Urine WBC Ur Squamous Epith Cells Amorphous Sediment Urine Bacteria Hyaline Casts Urine Mucus Salicylates Urine Opiates Scre en Acetaminophen Ur Barbiturates Sc reen Ur Phencyclidine S crn Ur Amphetamines Sc reen U Benzodiazepines Scrn Urine Cocaine Scre en U Marijuana (THC) Screen Ethyl Alcohol Hepatitis A IgM Ab Hep Bs Antigen Hep Bs Antibody Hep B Core Total A b Hepatitis C Antibo dy Vitals: Last Vital Signs Temp 98.0 F 03/12/20 01:52 Pulse 55 L 03/12/20 14:40 Resp 12 03/12/20 14:40 BP 112/67 03/12/20 14:40 Pulse Ox 92 03/12/20 14:40 Discharge Plan Discharge Patient Disposition: Home Clinical Impression: Drug overdose, Hepatitis C Condition: Stable Prescriptions: New Narcan 4 mg/actuation spray,non-aerosol 1 spray INTRANASAL Q3M PRN (Reason: opioid overdose) Qty: 2 RF: 2 Discharge Orders: Discharge Order (Routine); Ordered 03/12/20 Ordered By: Velma Franco Discharge Diet: Usual diet Discharge Activity: Resume usual activity Patient Instructions: Narcotic Abuse (ED) Activity Restrictions/Additional Instructions: Follow-up with the community resources that were provided to you today. They can help with your desire to stay clean off drugs. You can go to SOC for assistance with housing. Return to the ER if new or worse symptoms. 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
[2020-03-15 18:43] LABS: ABG PH Result 7.38 (7.35-7.45)
[2020-03-15 18:44] LABS: Base Excess ABG 0.2 mmol/L (-2.0-2.0); Blood Gas Sample Type Arterial; HCO3 ABG 25.8 mmol/L (22-26); Oxygen Device RA; PO2 ABG 74.9 mmHg (80.0-100.0)
[2020-03-15 18:45] LABS: Arterial Blood Gas Hematocrit 43.3 % (42-52)
== END 2020-03-12 14:40 | disposition home or self-care (01) ==
PROVIDERS: Emergency Medicine; Emergency Provider Emergency Medicine
DX: T40.1X1A Poisoning by heroin, accidental (unintentional), initial encounter (principal); Z86.19 Personal history of other infectious and parasitic diseases
CPT/HCPCS: 12345; 36415; 36600; 70450; 71045; 80053; 80306; 80307; 81001; 82550; 82803; 83735; 84484; 85025; 85610; 85730; 86705; 86706; 86709; 86803; 87340; 93005; 96361; 96374; 96375; 99284; J2310; J2405; J7030

== ENCOUNTER 2020-06-05 07:44 | Emergency (ER) | payer SELFPAY ==
[2020-06-05 07:46] VITALS: BMI 24.4
--- NOTE | 2020-06-05 07:51 | XRR_ITS ---
PROCEDURE INFORMATION: Exam: XR Chest, 1 View Exam date and time: 06/05/2020 8:01 AM Age: 40 years old Clinical indication: Other: Overdose; Additional info: Ams/hypoxia TECHNIQUE: Imaging protocol: XR of the chest Views: 1 view. COMPARISON: CR XR chest 1V portable [id number] 03/12/2020 1:58 AM FINDINGS: Lungs: No acute airspace disease. Pleural space: No pleural effusion. Heart/Mediastinum: No cardiomegaly. Bones/joints: Unremarkable. XR/XR chest 1V portable [id number] IMPRESSION: No acute airspace or pleural disease.
--- NOTE | 2020-06-05 07:52 | ECG_ITS ---
[facility] Test Date: 2020-06-05 Pat Name: Josias Murillo Department: Room: Gender: Male Medical I D Sales: : 1980 Requested By: Wilman Guadalupe Order Number: [id number] Andrea MD: KARLA AHUMADA Measurements Intervals [place] Rate: 100 P: 38 VA: 146 QRS: 69 QRSD: 105 T: 58 QT: 332 QTc: 430 Interpretive Statements SINUS TACHYCARDIA WITH OCCASIONAL VENTRICULAR PREMATURE COMPLEXES POSSIBLE LEFT ATRIAL ENLARGEMENT [-0.1mV P WAVE IN V1/V2] INCOMPLETE RIGHT BUNDLE BRANCH BLOCK [90+ ms QRS DURATION, TERMINAL R IN V1/V2, 40+ ms S IN I/aVL/V4/V5/V6] ABNORMAL RHYTHM ECG Compared to ECG 03/12/2020 07:48:09 Ventricular premature complex(es) now present Sinus bradycardia no longer present Electronically Signed On 06-05-2020 18:16:26 MUSKRAT TRAPPER by KARLA AHUMADA [id number] f
[2020-06-05 07:54] VITALS: BP 165/102; PULSE 110; RESP 21; O2SAT 100
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
[2020-06-05 08:06] LABS: Basophils # 0.1 10^3/uL (0.0-0.1); Basophils % 1.3 %; Eosinophils # 0.1 10^3/uL (0.0-0.8); Eosinophils % 1.9 %; Hematocrit 43.6 % (42.0-52.0); Hemoglobin 13.9 g/dL (11.7-16.6); Lymphocytes # 3.4 10^3/uL (0.8-4.8); Mean Corpuscular HGB Conc 31.9 g/dL (30.0-36.0); Mean Corpuscular Volume 97.3 fL (80-94); Mean Platelet Volume 10.2 fL (7.4-10.4); Neutrophils # 2.23 10^3/uL (1.8-7.7); Neutrophils % 32.7 %; Nucleated Red Blood Cells % 0 %; Platelet Count 200 10^3/cmm (130-400); Red Blood Count 4.48 10^6/uL (4.1-5.3); Red Cell Distribution Width 12.7 % (12.1-15.1); White Blood Count 6.8 10^3/uL (4.0-10.0)
[2020-06-05 08:31] LABS: Alanine Aminotransferase 128 U/L (0-41); Albumin Level 4.4 g/dL (3.5-5.2); Alkaline Phosphatase 177 IU/L (40-130); Anion Gap 13.2 (5-19); Aspartate Amino Transferase 101 U/L (0-40); Blood Urea Nitrogen 14 mg/dL (6-20); Calcium 9.5 mg/dL (8.5-10.5); Carbon Dioxide 30 mmol/L (22-29); Chloride 98 mmol/L (98-107); Creatinine Clr Calc Pharmacy 140.2833; Globulin 3.8 g/dL (1.3-4.6); Glomerular Filtration Rate 108.2 mL/min (90-130); Glucose 124 mg/dL (65-115); Osmolality Calculated 286 mOsm/kg (285-295); Potassium 4.2 mmol/L (3.5-5.1); Sodium 137 mmol/L (136-145); Total Bilirubin 0.5 mg/dL (0.15-1.2); Total Protein 8.2 g/dL (6.6-8.7)
[2020-06-05 08:34] LABS: Acetaminophen < 5.0 ug/mL (10-30); Alcohol Level < 10 mg/dL (0-10); Salicylate < 0.3 mg/dL (3-10)
[2020-06-05 08:45] VITALS: O2SAT 98
[2020-06-05 08:54] VITALS: BP 164/108; PULSE 76; RESP 16; O2SAT 99
[2020-06-05 08:54] LABS: Troponin(5th) Baseline 6 ng/L (0-15)
[2020-06-05 08:57] LABS: Add Urine Microscopic? NO
[2020-06-05 09:00] VITALS: RESP 18
[2020-06-05 09:32] LABS: Amphetamines Screen Urine Positive (Negative); Barbiturates Screen Urine Negative (Negative); Benzodiazepines Screen Urine Negative (Negative); Cocaine Screen Urine Negative (Negative); Opiate Screen Urine Positive (Negative); PCP Screen Urine Negative (Negative); THC Screen Urine Negative (Negative)
[2020-06-05] MEDS: naloxone 0.4 mg/ml SDV IVP (09:32)
[2020-06-05 09:39] LABS: Urine Appearance Clear (CLEAR); Urine Color Straw (Yellow)
[2020-06-05 09:40] LABS: Bilirubin Urine Neg (Negative); Blood Urine Neg (Negative); Glucose Urine UA Norm (Normal); Ketones Urine Negative (Negative); Leukocyte Esterase Urine Negative (Negative); Nitrate Urine Negative (Negative); Protein Urine Neg (Negative); Specific Gravity, Urine 1.025 (1.005-1.030); Urobilinogen Urine Norm (Negative); pH Urine 5 (5-7)
--- NOTE | 2020-06-05 09:52 | ECG_ITS ---
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: : 1980 Requested By: Wilman Guadalupe Order Number: [id number] Reading MD: KARLA AHUMADA Measurements Intervals [place] Rate: 94 P: 57 [place]: 149 QRS: 31 QRSD: 113 T: 41 QT: 355 QTc: 444 Interpretive Statements SINUS RHYTHM POSSIBLE LEFT ATRIAL ENLARGEMENT [-0.1mV P WAVE IN V1/V2] INCOMPLETE RIGHT BUNDLE BRANCH BLOCK [90+ ms QRS DURATION, TERMINAL R IN V1/V2, 40+ ms S IN I/aVL/V4/V5/V6] Compared to ECG 03/12/2020 07:48:09 Sinus bradycardia no longer present Electronically Signed On 06-05-2020 18:17:38 INSIDE SALES by KARLA AHUMADA [id number]
[2020-06-05 09:56] VITALS: BP 144/85; PULSE 95; RESP 13; O2SAT 95
[2020-06-05 10:03] VITALS: BP 144/85; PULSE 95; RESP 13; O2SAT 95
[2020-06-05 10:51] LABS: Troponin 5 2HR 13.87 ng/L (0-15); Troponin 5 2HR Delta 7.87 ABS# (0-10)
== END 2020-06-05 10:03 | disposition home or self-care (01) ==
PROVIDERS: Emergency Provider Family Medicine
DX: T40.1X1A Poisoning by heroin, accidental (unintentional), initial encounter (principal); Z86.19 Personal history of other infectious and parasitic diseases; F17.210 Nicotine dependence, cigarettes, uncomplicated
CPT/HCPCS: 12345; 71045; 80053; 80306; 80307; 81003; 84484; 85025; 93005; 96374; 99283; 99284; J2310

== ENCOUNTER 2020-11-27 20:37 | Emergency (ER) | payer SELFPAY ==
[2020-11-27 20:41] VITALS: BP 160/96; PULSE 95; RESP 17; TEMP 36.6; O2SAT 100; BMI 24.3
[2020-11-27 20:52] VITALS: BP 162/94; PULSE 93; RESP 20; O2SAT 99
--- NOTE | 2020-11-27 20:57 | W.ED.GENADLT ---
HPI - General Adult General: Chief complaint: General Medical Stated complaint: DETOXING Time Seen by Provider: 11/27/20 20:46 History of Present Illness: HPI narrative: Patient presents here from halfway. Patient in halfway last 24 hours. Patient is a daily heroin and fentanyl user. Patient is asked to be discharged and go home so he can use the Suboxone that he uses from his friend. Denies any health problems does not want any work-up done. Associated symptoms: Deny dyspnea Review of Systems Const: Reports: body aches; Denies: fever(s) or chills Resp: Denies: dyspnea GI: Denies: abdominal pain Psych: Reports: anxiety (Fentanyl opiate drug addiction. Also heroin.) PFS ED PFSH: Medical History Hepatitis C Surgical History History of hand surgery Right hand Social History Smoking and tobacco status: current every day smoker cigarettes Alcohol intake: current Physical Exam Const: COMMON NORMALS: no acute distress GENERAL APPEARANCE: cooperative and anxious ORIENTATION/CONSCIOUSNESS: Yes awake, Yes oriented to person, Yes oriented to place and Yes oriented to time Resp: COMMON NORMALS: clear to auscultation bilaterally AUSCULTATION: clear to auscultation bilaterally Cardio: COMMON NORMALS: regular rate and regular rhythm RATE: regular rate RHYTHM: regular rhythm Neuro: SENSORIUM/ORIENTATION: Yes oriented to person, Yes oriented to place and Yes oriented to time Psych: COMMON NORMALS: mental status grossly normal APPEARANCE: Yes grossly normal ACTIVITY/MOTOR BEHAVIOR: Yes appropriate eye contact SPEECH: Yes rapid MOOD & AFFECT: Yes anxious Course Vital Signs: Vital signs: Vital Signs Temperature 97.8 F 11/27/20 20:41 Pulse Rate 93 11/27/20 20:52 Respiratory Rate 20 H 11/27/20 20:52 Blood Pressure 162/94 11/27/20 20:52 Pulse Oximetry 99 11/27/20 20:52 MDM - General Adult MDM Narrative: Medical decision making narrative: She had no inclination to stay here. Patient does not appear to be a threat to himself or anybody else patient denies any suicidal or homicidal thoughts. Said he just wants to go home. Discharge Plan Discharge Patient Disposition: Home Clinical Impression: Drug abuse and dependence Condition: Stable Prescriptions: No Action Narcan 4 mg/actuation spray,non-aerosol 1 spray INTRANASAL Q3M PRN (Reason: opioid overdose) Qty: 2 RF: 2 Discharge Orders: Discharge ED (Routine); Ordered 11/27/20 Ordered By: Jose Alfredo Castlilo Discharge Diet: Usual diet Discharge Activity: Resume usual activity Activity Restrictions/Additional Instructions: Follow-up family medical provider as needed. 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
== END 2020-11-27 20:53 | disposition home or self-care (01) ==
PROVIDERS: Emergency Provider Nurse Practitioner Family
DX: F11.20 Opioid dependence, uncomplicated (principal); Z86.19 Personal history of other infectious and parasitic diseases; F17.210 Nicotine dependence, cigarettes, uncomplicated
CPT/HCPCS: 99282

== ENCOUNTER 2021-02-11 14:36 | Emergency (ER) | payer SELFPAY ==
[2021-02-11 14:56] VITALS: BP 153/104; PULSE 78; RESP 18; TEMP 36.7; O2SAT 99; BMI 25.7
[2021-02-11 17:03] VITALS: BP 165/108; PULSE 70; RESP 18; O2SAT 100
--- NOTE | 2021-02-11 17:44 | W.ED.DENTAL ---
HPI - Dental/Oral General: Chief complaint: Dental/Oral Stated complaint: ORAL/DENTAL PAIN Time Seen by Provider: 02/11/21 15:13 History of Present Illness: HPI Narrative: Patient comes in today with complaints of dental pain. Patient has been on antibiotics since the but continues to have dental discomfort. Patient reported some drainage from the right lower jaw along the third molar. Patient is alert oriented and appears well. Patient appears in moderate pain. Review of Systems General: Reports: 10 or more systems reviewed and unremarkable except in HPI and below ENMT: Reports: dental pain PFSH ED PFSH: Medical History Hepatitis C Surgical History History of hand surgery Right hand Social History Smoking and tobacco status: current every day smoker cigarettes Alcohol intake: current Physical Exam Const: COMMON NORMALS: no acute distress and patient oriented x3 GENERAL APPEARANCE: cooperative HENMT: COMMON NORMALS: normocephalic, TM's normal bilaterally and Normal external nose present HEAD & SCALP: normal to inspection and normocephalic NOSE: Normal external nose present TYMPANIC MEMBRANE: TM's normal bilaterally MOUTH: other (Poor dentition, no obvious dental abscess,) THROAT: posterior oropharynx normal Eye: GENERAL EYE: appearance normal, both eyes and all related structures Neck/C-Spine: COMMON NORMALS: full ROM Lymph: LYMPHATIC: no lymphadenopathy noted Chest: COMMONS NORMALS: normal inspection of the chest Resp: COMMON NORMALS: normal respiratory effort EFFORT & INSPECTION: Yes able to speak in complete sentences Cardio: COMMON NORMALS: regular rate and regular rhythm RATE: regular rate RHYTHM: regular rhythm GI: COMMON NORMALS: non-tender : COMMON NORMALS: Yes no CVA tenderness BLADDER/KIDNEY EXAM: Yes no CVA tenderness Back/Pelvis: COMMON NORMALS: no CVA tenderness and thoracic and lumbar spine normal to inspection Extremity: COMMON NORMALS: normal to inspection Neuro: COMMON NORMALS: patient oriented x3 and moves all extremities Psych: COMMON NORMALS: mental status grossly normal and cooperative Skin: COMMON NORMALS: no rashes or lesions noted GENERAL SKIN EXAM: no rashes or lesions noted Course Vital Signs: Vital signs: Vital Signs Temperature 98.0 F 02/11/21 14:56 Pulse Rate 70 02/11/21 17:03 Respiratory Rate 18 02/11/21 17:03 Blood Pressure 165/108 02/11/21 17:03 Pulse Oximetry 100 02/11/21 17:03 MDM - Dental/Oral MDM Narrative: Medical decision making narrative: Patient comes in with dental pain. On exam patient has multiple caries to the teeth with some decay to the gumline. Posterior pharynx is open without any signs of asymmetry or swelling. Sublingual areas is normal. No obvious signs of gingival swelling or abscess. Differential diagnosis includes periapical abscess, dental pain, malingering. No signs of serious illnesses noted. Reviewed exam with patient recommended continued treatment with the clindamycin and follow-up with dentist. We will cover patient with some pain medication hydrocodone with acetaminophen No. 10 until he can follow-up with dentist. Recommended use of acetaminophen and ibuprofen for control of pain. Recommend return to the ER for new symptoms. Discharge Plan Discharge Patient Disposition: Home Clinical Impression: Pain due to dental caries Condition: Stable Prescriptions: New hydrocodone-acetaminophen 5-325 mg tablet 1 tab PO Q6H PRN (Reason: pain) Qty: 10 RF: 0 No Action clindamycin HCl 300 mg capsule 300 mg PO TID 10 Days Qty: 30 RF: 0 ibuprofen 800 mg tablet 800 mg PO TID PRN (Reason: pain) Qty: 30 RF: 0 Narcan 4 mg/actuation spray,non-aerosol 1 spray INTRANASAL Q3M PRN (Reason: opioid overdose) Qty: 2 RF: 2 Discharge Orders: Discharge ED (Routine); Ordered 02/11/21 Ordered By: Corby Crockett Discharge Diet: Usual diet Discharge Activity: Increase activity as tolerated Patient Instructions: Toothache (ED), Opioid Safety Activity Restrictions/Additional Instructions: Continue with antibiotic. Good oral care. Use acetaminophen and ibuprofen to control pain. Use hydrocodone for breakthrough pain. Follow-up with dentist for further care. Coding Level of Care Code ED Exhaust And Muffler Repairer for Niru Khan
[2021-02-11] MEDS: HYDROcodone-acetaminophen 5-325 mg Tablet 1 TAB PO (18:14)
[2021-02-11 18:16] VITALS: BP 148/99; PULSE 78; RESP 20; O2SAT 98
[2021-02-11 18:20] VITALS: BP 141/89; PULSE 87; RESP 18; O2SAT 100
== END 2021-02-11 18:25 | disposition home or self-care (01) ==
PROVIDERS: Emergency Provider Nurse Practitioner Family
DX: K02.9 Dental caries, unspecified (principal); Z86.19 Personal history of other infectious and parasitic diseases; F17.210 Nicotine dependence, cigarettes, uncomplicated
CPT/HCPCS: 99283

== ENCOUNTER 2022-11-23 07:03 | Observation (INO) | payer SELFPAY ==
[2022-11-23] VITALS (29 sets, daily range): BP systolic 95–158; BP diastolic 75–114; PULSE 81–100; RESP 10–24; TEMP 36.5; O2SAT 87–99
--- NOTE | 2022-11-23 07:10 | ECG_ITS ---
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 Measurements Intervals [place] Rate: 90 P: 21 IN: 140 QRS: 57 QRSD: 118 T: 32 QT: 372 QTc: 457 Interpretive Statements SINUS RHYTHM POSSIBLE LEFT ATRIAL ENLARGEMENT [-0.1mV P-WAVE IN V1/V2] INCOMPLETE RIGHT BUNDLE BRANCH BLOCK [90+ ms QRS DURATION, TERMINAL R IN V1/V2, 40+ ms S IN I/aVL/V4/V5/V6] ST ELEVATION CONSISTENT WITH INJURY, PERICARDITIS, OR EARLY REPOLARIZATION [ST ELEVATION W/O NORMALLY INFLECTED T-WAVE] Compared to ECG 06/05/2020 09:34:42 ST (T wave) deviation now present Early repolarization now present Electronically Signed On 11-23-2022 14:50:45 CDT by Simon Somers M.D. [id number]
--- NOTE | 2022-11-23 07:10 | XR_ITS ---
WS: [id number] Portable AP upright chest, 11/23/2022 Clinical Data: dyspnea/cough Comparison: Portable chest, 06/05/2020 Findings: No nodules, masses or effusions are seen. The heart is normal. The pulmonary vascularity is not increased. No pneumonia or pneumothorax is seen. Monitor leads are on the chest wall. XR/XR chest 1V portable [id number] Impression: Negative chest.
[2022-11-23 07:20] LABS: Glucose Point of Care 140 mg/dL (70-110)
[2022-11-23 07:23] LABS: ABG PCO2 44.1 mmHg (35-45); ABG PH Result 7.35 (7.35-7.45); Alveolar-Arterial Oxygen Gradi 3.8 mmHg (5-10); Arterial Blood Gas Hematocrit 51.6 % (42-52); Base Excess ABG -1.3 mmol/L (-2.0-2.0); Blood Gas Allen Test Pos; Blood Gas Operator Identificat CAK; Blood Gas Sample Site Brachial, left; Blood Gas Sample Type Arterial; Carboxyhemoglobin 2.6 %THgb (0.4-20.1); HCO3 ABG 24.5 mmol/L (22-26); HGB O2 Sat 86.8 % (95-100); Ionized Calcium Level - ABG 1.3 mmol/L (1.1-1.4); Methemoglobin 0.7 % (0.4-1.5); Oxygen Device NC; Oxygen Saturation ABG 89.9; PO2 ABG 65.5 mmHg (80.0-100.0); Potassium Level - ABG 3.4 mmol/L (3.5-5.0); Total Hemoglobin 16.8 g/dL (14-18)
[2022-11-23] MEDS: ondansetron 2 mg/ML SDV 2 mL 4 MG IVP (07:24)
[2022-11-23] MEDS: sodium chloride 0.9% 1,000 ML 999 ML IV (07:25)
[2022-11-23 07:32] LABS: Basophils % 0.5 %; Eosinophils % 0.4 %; Hematocrit 47.9 % (42.0-52.0); Hemoglobin 16.4 g/dL (11.7-16.6); Lymphocytes # 2.3 10^3/uL (0.8-4.8); Lymphocytes % 28.1 %; Mean Corpuscular HGB Conc 34.2 g/dL (30.0-36.0); Mean Corpuscular Hemoglobin 32.3 pg (28.0-34.0); Mean Corpuscular Volume 94.5 fl (80-94); Mean Platelet Volume 10.2 fL (7.4-10.4); Monocytes % 12.2 %; Neutrophils # 4.69 10^3/uL (1.8-7.7); Neutrophils % 58.4 %; Nucleated Red Blood Cells % 0 %; Platelet Count 222 10^3/cmm (130-400); Red Blood Count 5.07 10^6/uL (4.1-5.3); Red Cell Distribution Width 12.3 % (12.1-15.1)
--- NOTE | 2022-11-23 07:35 | PC.NURSE ---
WHEN ASKED IF PT WANTS TO HARM HIMSELF OR ANYONE ELSE PT REPLIED NO I JUST WANTED TO GET HIGH.
[2022-11-23 07:45] LABS: Alanine Aminotransferase 100 U/L (0-41); Albumin Level 4.5 g/dL (3.5-5.2); Alkaline Phosphatase 75 U/L (40-130); Blood Urea Nitrogen 38 mg/dL (6-20); Calcium 9.7 mg/dL (8.5-10.5); Carbon Dioxide 24 mmol/L (22-29); Chloride 96 mmol/L (98-107); Glomerular Filtration Rate 67.1 mL/min (90-130); Glucose 128 mg/dL (65-115); Osmolality Calculated 287 mOsm/kg (285-295); Sodium 133 mmol/L (136-145); Total Bilirubin 1.5 mg/dL (0.15-1.2); Total Protein 8.5 g/dL (6.6-8.7)
[2022-11-23 07:52] LABS: Acetaminophen < 5.0 ug/mL (10-30); Anion Gap 16.7 (5-19); Aspartate Amino Transferase 116 U/L (0-40); Potassium 3.7 mmol/L (3.5-5.1); Salicylate < 0.3 mg/dL (3-10)
--- NOTE | 2022-11-23 07:52 | W.ED.OVERDOS ---
HPI - Overdose General: Chief Complaint: Overdose Stated Complaint: overdose Time Seen by Provider: 11/23/22 07:05 Source: patient Mode of arrival: ambulatory History of Present Illness: 42-year-old male presents emergency room via EMS. They were called for an unresponsive patient he had accidentally overdosed on fentanyl he does IV fentanyl regularly intermittently has been using it daily he is unsure of the amount he uses. He does have Narcan at home but did not use it he was given Narcan at the scene. EMS reports they were toned out at about 615 bystanders estimated she taken the fentanyl 20 minutes prior to that. And given multiple doses of fentanyl in the field the last 1 was at approximately 640. Patient is somnolent but answers some questions he is still requiring oxygen support at 2 L/min. He denies any pain or injury. He denies using any other drugs. Later on patient was more awake he admitted that he was at [facility] as an inpatient when he used the fentanyl this morning. He is still requiring oxygen support he is arousable but when he dozes off during conversation which is frequently he desats to the anywhere from 89 to 92% MD complaint: accidental overdose Onset (ago): hour(s) (1) Treatments Prior to Arrival: oxygen, narcan and IV fluids Review of Systems General: Reports: ROS unobtainable due to mental status [facility] ED PFSH: Medical History Hepatitis C Surgical History History of hand surgery Right hand Social History Smoking and tobacco status: current every day smoker cigarettes Alcohol intake: current Substance/Drug Use: current Substance/Drug use frequency: daily Physical Exam Const: GENERAL APPEARANCE: cooperative ORIENTATION/CONSCIOUSNESS: Yes awake HENMT: COMMON NORMALS: normocephalic, atraumatic and hearing grossly normal bilaterally HEAD & SCALP: normocephalic and atraumatic Resp: COMMON NORMALS: normal respiratory effort, No retractions, No use of accessory muscles and clear to auscultation bilaterally AUSCULTATION: clear to auscultation bilaterally Cardio: COMMON NORMALS: regular rate, regular rhythm and No murmurs present (Cardio) RATE: regular rate RHYTHM: regular rhythm GI: COMMON NORMALS: Soft to palpation and No hepatosplenomegaly present AUSCULTATION: Yes normoactive bowel sounds PALPATION: Yes Soft to palpation, No Tenderness to palpation present (GI), No Guarding due to palpation present (GI) and Yes No hepatosplenomegaly present Extremity: COMMON NORMALS: normal to inspection, capillary refill normal, no clubbing, cyanosis or edema, no calf tenderness and no pedal edema Skin: COMMON NORMALS: no rashes or lesions noted GENERAL SKIN EXAM: no rashes or lesions noted Course Vital Signs: Vital signs: Vital Signs Temperature 97.7 F 11/23/22 07:04 Pulse Rate 93 11/23/22 12:00 Respiratory Rate 20 H 11/23/22 12:00 Blood Pressure 121/81 11/23/22 12:00 Pulse Oximetry 91 11/23/22 12:00 Oxygen Delivery Me thod Room Air 11/23/22 10:56 Oxygen Flow Rate 2 11/23/22 08:11 MDM - Overdose Medical Decision Making Patient is awake. He is arousable but dozes off during conversation. He will desat to 89 to 92% on room air when he falls asleep. He has done this multiple times in the past including 1 time he required observation for 6 to [address] Cleveland will place in observation in the ICU with me one-on-one sitter and close monitoring. Medical Records I reviewed the patient's medical records. Lab Data I reviewed the patient's lab results. 11/23/22 07:10 11/23/22 07:10 Radiology Impressions Chest X-Ray 11/23/22 07:10 Impression: Negative chest. Laboratory Results WBC 8.0 10^3/uL (4.0-10.0) 11/23/22 07:10 RBC 5.07 10^6/uL (4.1-5.3) 11/23/22 07:10 Hgb 16.4 g/dL (11.7-16.6) 11/23/22 07:10 Hct 47.9 % (42.0-52.0) 11/23/22 07:10 MCV 94.5 fl (80-94) H 11/23/22 07:10 MCH 32.3 pg (28.0-34.0) 11/23/22 07:10 MCHC 34.2 g/dL (30.0-36.0) 11/23/22 07:10 RDW 12.3 % (12.1-15.1) 11/23/22 07:10 Plt Count 222 10^3/cmm (130-400) 11/23/22 07:10 MPV 10.2 fL (7.4-10.4) 11/23/22 07:10 Neut % (Auto) 58.4 % 11/23/22 07:10 Lymph % (Auto) 28.1 % 11/23/22 07:10 [place] % (Auto) 12.2 % 11/23/22 07:10 Eos % (Auto) 0.4 % 11/23/22 07:10 Baso % (Auto) 0.5 % 11/23/22 07:10 Neut # (Auto) 4.69 10^3/uL (1.8-7.7) 11/23/22 07:10 Lymph # (Auto) 2.3 10^3/uL (0.8-4.8) 11/23/22 07:10 [place] # (Auto) 1.0 10^3/uL (0.2-0.9) H 11/23/22 07:10 Eos # (Auto) 0.0 10^3/uL (0.0-0.8) 11/23/22 07:10 Baso # (Auto) 0.0 10^3/uL (0.0-0.1) 11/23/22 07:10 Nucleated RBC % (auto) 0 % 11/23/22 07:10 Nucleated RBCs # 0.0 /100WBC 11/23/22 07:10 Specimen Type Arterial 11/23/22 07:12 Sample Site Brachial, left 11/23/22 07:12 ABG pH 7.35 (7.35-7.45) 11/23/22 07:12 ABG pCO2 44.1 mmHg (35-45) 11/23/22 07:12 ABG pO2 65.5 mmHg (80.0-100.0) L 11/23/22 07:12 ABG HCO3 24.5 mmol/L (22-26) 11/23/22 07:12 ABG O2 Saturation 89.9 11/23/22 07:12 ABG Base Excess -1.3 mmol/L (-2.0-2.0) 11/23/22 07:12 Prince Test Pos 11/23/22 07:12 A-a O2 Gradient 3.8 mmHg (5-10) L 11/23/22 07:12 Hematocrit 51.6 % (42-52) 11/23/22 07:12 Hgb O2 Saturation 86.8 % (95-100) L 11/23/22 07:12 Carboxyhemoglobin 2.6 %THgb (0.4-20.1) 11/23/22 07:12 Methemoglobin 0.7 % (0.4-1.5) 11/23/22 07:12 Total Hemoglobin 16.8 g/dL (14-18) 11/23/22 07:12 Sodium 140.0 mmol/L (131-143) 11/23/22 07:12 Potassium 3.4 mmol/L (3.5-5.0) L 11/23/22 07:12 Glucose 140.0 mg/dL (70-115) H 11/23/22 07:12 Ionized Calcium 1.3 mmol/L (1.1-1.4) 11/23/22 07:12 O2 Delivery Device Nc 11/23/22 07:12 O2 Liters/Min 2.0 % 11/23/22 07:12 Skydiving Instructor ID Cak 11/23/22 07:12 Sodium 133 mmol/L (136-145) L 11/23/22 07:10 Potassium 3.7 mmol/L (3.5-5.1) 11/23/22 07:10 Chloride 96 mmol/L (98-107) L 11/23/22 07:10 Carbon Dioxide 24 mmol/L (22-29) 11/23/22 07:10 Anion Gap 16.7 (5-19) 11/23/22 07:10 BUN 38 mg/dL (6-20) H 11/23/22 07:10 Creatinine 1.2 mg/dL (0.7-1.2) 11/23/22 07:10 GFR Calculation 67.1 mL/min (90-130) L 11/23/22 07:10 Glucose 128 mg/dL (65-115) H 11/23/22 07:10 POC Glucose 140 mg/dL (70-110) H 11/23/22 07:09 Calculated Osmolality 287 mOsm/kg (285-295) 11/23/22 07:10 Calcium 9.7 mg/dL (8.5-10.5) 11/23/22 07:10 Total Bilirubin 1.5 mg/dL (0.15-1.2) H 11/23/22 07:10 AST 116 U/L (0-40) H 11/23/22 07:10 ALT 100 U/L (0-41) H 11/23/22 07:10 Alkaline Phosphatase 75 U/L (40-130) 11/23/22 07:10 Total Protein 8.5 g/dL (6.6-8.7) 11/23/22 07:10 Albumin 4.5 g/dL (3.5-5.2) 11/23/22 07:10 Globulin 4.0 g/dL (1.3-4.6) 11/23/22 07:10 Urine Color Yellow (Yellow) 11/23/22 07:55 Urine Appearance Sl hazy (CLEAR) A 11/23/22 07:55 Urine pH 5 (5-7) 11/23/22 07:55 Ur Specific [place] 1.025 (1.005-1.030) 11/23/22 07:55 Urine Protein 1+ (Negative) H 11/23/22 07:55 Urine Glucose (UA) Norm (Normal) 11/23/22 07:55 Urine Ketones 1+ (Negative) H 11/23/22 07:55 Urine Blood 2+ (Negative) H 11/23/22 07:55 Urine Nitrate Negative (Negative) 11/23/22 07:55 Urine Bilirubin 1+ (Negative) H 11/23/22 07:55 Urine Urobilinogen 1 mg/dL (Negative) H 11/23/22 07:55 Ur Leukocyte Esterase Negative (Negative) 11/23/22 07:55 Urine RBC 0-4 /hpf (0-2) H 11/23/22 07:55 Urine WBC 0-4 /hpf (0-5) H 11/23/22 07:55 Ur Squamous Epith Cells 0-4 /hpf (0-5) H 11/23/22 07:55 Amorphous Sediment Not Reportable 11/23/22 07:55 Urine Bacteria Trace /hpf (NONE) 11/23/22 07:55 Hyaline Casts 25-40 /lpf H 11/23/22 07:55 Fine Granular Casts 0-4 /lpf H 11/23/22 07:55 Urine Mucus 1+ /hpf 11/23/22 07:55 Salicylates < 0.3 mg/dL (3-10) L 11/23/22 07:10 Urine Opiates Screen Negative ng/mL (Negative) 11/23/22 07:55 Acetaminophen < 5.0 ug/mL (10-30) L 11/23/22 07:10 Ur Barbiturates Screen Negative ng/mL (Negative) 11/23/22 07:55 Ur Phencyclidine Scrn Negative ng/mL (Negative) 11/23/22 07:55 Ur Amphetamines Screen Positive ng/mL (Negative) H 11/23/22 07:55 U Benzodiazepines Scrn Negative ng/mL (Negative) 11/23/22 07:55 Urine Cocaine Screen Negative ng/mL (Negative) 11/23/22 07:55 U Marijuana (THC) Screen Negative ng/mL (Negative) 11/23/22 07:55 Discharge Plan Discharge Patient Disposition: Admitted As Inpatient Admit Provider: Robert West Clinical Impression: Accidental fentanyl overdose, Hepatitis C, Hypoxia Condition: Stable Discharge Diet: Usual diet Discharge Activity: Increase activity as tolerated Coding Level of Care Code ED Accounting Director for Niru Khan
[2022-11-23 08:15] LABS: Amphetamines Screen Urine Positive (Negative); Barbiturates Screen Urine Negative (Negative); Benzodiazepines Screen Urine Negative (Negative); Cocaine Screen Urine Negative (Negative); Opiate Screen Urine Negative (Negative); PCP Screen Urine Negative (Negative); THC Screen Urine Negative (Negative)
[2022-11-23 08:33] LABS: Specific Gravity, Urine 1.025 (1.005-1.030); Urine Appearance SL Hazy (CLEAR); Urine Color Yellow (Yellow); pH Urine 5 (5-7)
[2022-11-23 08:34] LABS: Add Urine Microscopic? YES; Bilirubin Urine 1+ (Negative); Blood Urine 2+ (Negative); Glucose Urine UA Norm (Normal); Ketones Urine 1+ (Negative); Leukocyte Esterase Urine Negative (Negative); Nitrate Urine Negative (Negative); Protein Urine 1+ (Negative); Urobilinogen Urine 1 mg/dL (Negative)
[2022-11-23 08:41] LABS: RBC Urine 0-4 /hpf (0-2); Squamous Epithelial Cell Urine 0-4 /hpf (0-5); WBC Urine 0-4 /hpf (0-5)
[2022-11-23 08:42] LABS: Add Urine Culture? No; Bacteria Urine TRACE /hpf; Fine Granular Casts Urine 0-4 /lpf; Hyaline Casts Urine 25-40 /lpf; Mucus Urine 1+ /hpf
--- NOTE | 2022-11-23 10:01 | PM.HP ---
Providers/Chief Complaint Admitting Physician: Robert West MD Chief Complaint: overdose History of Present Illness Josias Murillo Jr is a 42 year old male presenting to the emergency department after overdose via EMS. Patient reports he used fentanyl this morning, and may have gotten too much. He was given Narcan at the scene. In the emergency department he awakens briefly, reports he had no intent of self-harm, reports he is a regular user of fentanyl and used it IV this morning. The emergency department physician believed he needed observed longer, as he is still requiring some oxygen and is still somewhat lethargic. He has no recent history of fever. Apparently after getting Narcan at the scene he did vomit. Review of Systems General: Reports: 10 or more systems reviewed and unremarkable except in HPI and below Card: Denies: chest pain Resp: Denies: dyspnea Psych: Denies: suicidal ideation or homicidal ideation Medications/Allergies Home Medications Medication Instructions Recorded Confirmed Last Taken Type Unable to Assess 11/23/22 11/23/22 Unknown History Allergies Allergy/AdvReac Type Severity Reaction Status Date / Time No Known Allergies Allergy Verified 02/07/21 14:12 PFSH Acute PFSH: Medical History Hepatitis C Surgical History History of hand surgery Right hand Social History Smoking and tobacco status: current every day smoker cigarettes Alcohol intake: current Substance/Drug Use: current Substance/Drug use frequency: daily Vitals/I&O/Wt Last Vital Signs Temp 97.7 F 11/23/22 07:04 Pulse 92 11/23/22 09:45 Resp 24 H 11/23/22 09:45 BP 121/91 11/23/22 09:45 Pulse Ox 99 11/23/22 09:45 O2 Del Method Nasal Cannula 11/23/22 08:11 O2 Flow Rate 2 11/23/22 08:11 Weight last 48 hrs Weight 104.326 kg Physical Exam Narrative: General exam is white male, no distress HEENT: Atraumatic and normocephalic. Pupils equally round. Oropharynx clear Neck is supple no lymphadenopathy thyromegaly Cardiovascular regular rate and rhythm without murmur Lungs a few faint expiratory wheezes Abdomen is soft positive bowel sounds Extremities no cyanosis clubbing or edema deferred Neuro no focal deficits Data 11/23/22 07:10 11/23/22 07:10 Other Labs: ABG demonstrates pH 7.35, PCO2 44, PO2 65 on 2 L LFTs demonstrate an elevation in bilirubin at 1.5, AST of 116, ALT of 100. Alk phos, calcium, albumin are all normal Urinalysis 0-4 reds 0-4 whites Salicylate level, acetaminophen level, alcohol level all not measurable. Urine drug screen positive for amphetamines. Chest x-ray which I reviewed demonstrates no infiltrate EKG which I reviewed demonstrates normal sinus rhythm, intraventricular conduction delay, early repolarization, biphasic P wave in V1 possibly indicating left atrial enlargement A&P Assessment and plan (1) Accidental fentanyl overdose: Patient presents with accidental fentanyl overdose. He denies any intent of self-harm. He received Narcan twice in the field. The emergency department physician is worried about giving him further Narcan as this may precipitate significant withdrawals or seizures. I agree. As he is still somewhat sedate, requiring oxygen it is reasonable to observe him until he recovers enough for discharge As he potentially could require further Narcan, possibly need a Narcan drip, have significant withdrawal symptoms, will observe in the ICU initially Discussed with him need for discontinuation of drug habit. From my understanding he is already connected with outpatient withdrawal, and was intending on presenting to [facility]. (2) Hypoxia: Wean oxygen as tolerated as he recovers from drug overdose I do understand that he vomited, but at this point do not believe antibiotics are needed and that aspiration pneumonitis requiring antibiotics is unlikely currently. (3) Hepatitis C: Patient has transaminitis, consistent with amphetamine use and or hepatitis C. Recommend outpatient evaluation and treatment with primary care provider. Qualifiers: Hepatic coma status: without hepatic coma Viral hepatitis chronicity: unspecified Qualified Code(s): B19.20 - Unspecified viral hepatitis C without hepatic coma Plan Full code currently Low risk for DVT, no prophylaxis needed Attestations Medical Necessity Statement*: Will require less than 2 midnight stay for evaluation and treatment of drug overdose, unintentional Diagnoses Accidental fentanyl overdose T40.411A Hypoxia R09.02 Hepatitis C B19.20 Hepatic coma status: without hepatic coma Viral hepatitis chronicity: unspecified Time Spent (min) 42
[2022-11-23] MEDS: sodium chloride 0.9% 1,000 ML 75 ML IV (11:56)
--- NOTE | 2022-11-23 12:32 | PM.DCS ---
Discharge Providers Date of Admission: 11/23/22 09:37 Date of Discharge: November 23, 2022 Attending Provider at Admission: Robert West MD Attending Provider at Discharge: Robert West MD Diagnoses at Discharge Discharge Diagnosis (1) Accidental fentanyl overdose: Status: Acute (2) Hypoxia: Status: Acute (3) Hepatitis C: Status: Acute Qualifiers: Hepatic coma status: without hepatic coma Viral hepatitis chronicity: unspecified Qualified Code(s): B19.20 - Unspecified viral hepatitis C without hepatic coma Reason for Visit Reason for Visit: overdose Hospital Course Hospital Course Patient presented to the emergency department with unintentional fentanyl overdose. He was hypoxic, and received some Narcan at the scene. He vomited at least once. In the emergency department he was persistently sleepy, and requiring oxygen. He was observed, transferring over to the ICU. He denied any homicidal or suicidal ideation. During his ICU course he became gradually more awake, wanting to go home, was alert and oriented x3. I discussed with him not smoking, not using drugs, prescription for Narcan, rehab, referral to primary care provider. He was given the ability to ask questions, and agreed with the plan. Physical Exam Narrative: General exam no distress, alert and oriented x3 with good decisional capacity at this point in time Neck is supple Cardiovascular regular rate and rhythm, no murmur Lungs clear Abdomen soft Extremities no cyanosis clubbing or edema Discharge Data Studies Completed and Pending Completed Studies During Hospitalization Category Date Time Status XR chest 1V portable [id number] Stat Exams 11/23/22 07:10 Completed Radiology Impressions Chest X-Ray 11/23/22 07:10 Impression: Negative chest. Laboratory Results WBC 8.0 10^3/uL (4.0-10.0) 11/23/22 07:10 RBC 5.07 10^6/uL (4.1-5.3) 11/23/22 07:10 Hgb 16.4 g/dL (11.7-16.6) 11/23/22 07:10 Hct 47.9 % (42.0-52.0) 11/23/22 07:10 MCV 94.5 fl (80-94) H 11/23/22 07:10 MCH 32.3 pg (28.0-34.0) 11/23/22 07:10 MCHC 34.2 g/dL (30.0-36.0) 11/23/22 07:10 RDW 12.3 % (12.1-15.1) 11/23/22 07:10 Plt Count 222 10^3/cmm (130-400) 11/23/22 07:10 MPV 10.2 fL (7.4-10.4) 11/23/22 07:10 Neut % (Auto) 58.4 % 11/23/22 07:10 Lymph % (Auto) 28.1 % 11/23/22 07:10 [place] % (Auto) 12.2 % 11/23/22 07:10 Eos % (Auto) 0.4 % 11/23/22 07:10 Baso % (Auto) 0.5 % 11/23/22 07:10 Neut # (Auto) 4.69 10^3/uL (1.8-7.7) 11/23/22 07:10 Lymph # (Auto) 2.3 10^3/uL (0.8-4.8) 11/23/22 07:10 [place] # (Auto) 1.0 10^3/uL (0.2-0.9) H 11/23/22 07:10 Eos # (Auto) 0.0 10^3/uL (0.0-0.8) 11/23/22 07:10 Baso # (Auto) 0.0 10^3/uL (0.0-0.1) 11/23/22 07:10 Nucleated RBC % (auto) 0 % 11/23/22 07:10 Nucleated RBCs # 0.0 /100WBC 11/23/22 07:10 Specimen Type Arterial 11/23/22 07:12 Sample Site Brachial, left 11/23/22 07:12 ABG pH 7.35 (7.35-7.45) 11/23/22 07:12 ABG pCO2 44.1 mmHg (35-45) 11/23/22 07:12 ABG pO2 65.5 mmHg (80.0-100.0) L 11/23/22 07:12 ABG HCO3 24.5 mmol/L (22-26) 11/23/22 07:12 ABG O2 Saturation 89.9 11/23/22 07:12 ABG Base Excess -1.3 mmol/L (-2.0-2.0) 11/23/22 07:12 Prince Test Pos 11/23/22 07:12 A-a O2 Gradient 3.8 mmHg (5-10) L 11/23/22 07:12 Hematocrit 51.6 % (42-52) 11/23/22 07:12 Hgb O2 Saturation 86.8 % (95-100) L 11/23/22 07:12 Carboxyhemoglobin 2.6 %THgb (0.4-20.1) 11/23/22 07:12 Methemoglobin 0.7 % (0.4-1.5) 11/23/22 07:12 Total Hemoglobin 16.8 g/dL (14-18) 11/23/22 07:12 Sodium 140.0 mmol/L (131-143) 11/23/22 07:12 Potassium 3.4 mmol/L (3.5-5.0) L 11/23/22 07:12 Glucose 140.0 mg/dL (70-115) H 11/23/22 07:12 Ionized Calcium 1.3 mmol/L (1.1-1.4) 11/23/22 07:12 O2 Delivery Device Nc 11/23/22 07:12 O2 Liters/Min 2.0 % 11/23/22 07:12 [employer] Functional Analyst ID Cak 11/23/22 07:12 Sodium 133 mmol/L (136-145) L 11/23/22 07:10 Potassium 3.7 mmol/L (3.5-5.1) 11/23/22 07:10 Chloride 96 mmol/L (98-107) L 11/23/22 07:10 Carbon Dioxide 24 mmol/L (22-29) 11/23/22 07:10 Anion Gap 16.7 (5-19) 11/23/22 07:10 BUN 38 mg/dL (6-20) H 11/23/22 07:10 Creatinine 1.2 mg/dL (0.7-1.2) 11/23/22 07:10 GFR Calculation 67.1 mL/min (90-130) L 11/23/22 07:10 Glucose 128 mg/dL (65-115) H 11/23/22 07:10 POC Glucose 140 mg/dL (70-110) H 11/23/22 07:09 Calculated Osmolality 287 mOsm/kg (285-295) 11/23/22 07:10 Calcium 9.7 mg/dL (8.5-10.5) 11/23/22 07:10 Total Bilirubin 1.5 mg/dL (0.15-1.2) H 11/23/22 07:10 AST 116 U/L (0-40) H 11/23/22 07:10 ALT 100 U/L (0-41) H 11/23/22 07:10 Alkaline Phosphatase 75 U/L (40-130) 11/23/22 07:10 Total Protein 8.5 g/dL (6.6-8.7) 11/23/22 07:10 Albumin 4.5 g/dL (3.5-5.2) 11/23/22 07:10 Globulin 4.0 g/dL (1.3-4.6) 11/23/22 07:10 Urine Color Yellow (Yellow) 11/23/22 07:55 Urine Appearance Sl hazy (CLEAR) A 11/23/22 07:55 Urine pH 5 (5-7) 11/23/22 07:55 Ur Specific [place] 1.025 (1.005-1.030) 11/23/22 07:55 Urine Protein 1+ (Negative) H 11/23/22 07:55 Urine Glucose (UA) Norm (Normal) 11/23/22 07:55 Urine Ketones 1+ (Negative) H 11/23/22 07:55 Urine Blood 2+ (Negative) H 11/23/22 07:55 Urine Nitrate Negative (Negative) 11/23/22 07:55 Urine Bilirubin 1+ (Negative) H 11/23/22 07:55 Urine Urobilinogen 1 mg/dL (Negative) H 11/23/22 07:55 Ur Leukocyte Esterase Negative (Negative) 11/23/22 07:55 Urine RBC 0-4 /hpf (0-2) H 11/23/22 07:55 Urine WBC 0-4 /hpf (0-5) H 11/23/22 07:55 Ur Squamous Epith Cells 0-4 /hpf (0-5) H 11/23/22 07:55 Amorphous Sediment Not Reportable 11/23/22 07:55 Urine Bacteria Trace /hpf (NONE) 11/23/22 07:55 Hyaline Casts 25-40 /lpf H 11/23/22 07:55 Fine Granular Casts 0-4 /lpf H 11/23/22 07:55 Urine Mucus 1+ /hpf 11/23/22 07:55 Salicylates < 0.3 mg/dL (3-10) L 11/23/22 07:10 Urine Opiates Screen Negative ng/mL (Negative) 11/23/22 07:55 Acetaminophen < 5.0 ug/mL (10-30) L 11/23/22 07:10 Ur Barbiturates Screen Negative ng/mL (Negative) 11/23/22 07:55 Ur Phencyclidine Scrn Negative ng/mL (Negative) 11/23/22 07:55 Ur Amphetamines Screen Positive ng/mL (Negative) H 11/23/22 07:55 U Benzodiazepines Scrn Negative ng/mL (Negative) 11/23/22 07:55 Urine Cocaine Screen Negative ng/mL (Negative) 11/23/22 07:55 U Marijuana (THC) Screen Negative ng/mL (Negative) 11/23/22 07:55 Vitals Last Vital Signs Temp 97.7 F 11/23/22 07:04 Pulse 93 11/23/22 12:00 Resp 20 H 11/23/22 12:00 BP 121/81 11/23/22 12:00 Pulse Ox 91 11/23/22 12:00 O2 Del Method Room Air 11/23/22 10:56 O2 Flow Rate 2 11/23/22 08:11 Discharge Plan Discharge Patient Disposition: Home Condition: Stable Prescriptions: New naloxone [Narcan] 4 mg/actuation spray,non-aerosol 1 spray intranasal Q3M PRN (Reason: opioid overdose) Qty: 2 0RF Rx Instructions: spray 1 dose into ONE nostril; alternate nostrils w each dose until help arrives No Action Unable to Assess Discharge Orders: Discharge Order (Routine); Ordered 11/23/22 Ordered By: Robert West Discharge Diet: Usual diet Discharge Activity: Increase activity as tolerated Patient Instructions: Opioid Safety Activity Restrictions/Additional Instructions: Do not use any drugs. Please arrange to see primary care provider regarding history of hepatitis C Stop smoking Discharge Attestations Time Spent in Discharge Care*: greater than 30 min Quality Metrics Clinical Quality Measures [ No reported AMI, CVA or VTE this stay] Coding Level of Care Code 46206 Total time (in minutes) for Discharge: 30 Diagnoses Accidental fentanyl overdose T40.411A Hypoxia R09.02 Hepatitis C B19.20 Hepatic coma status: without hepatic coma Viral hepatitis chronicity: unspecified
--- NOTE | 2022-11-23 13:23 | PC.NURSE ---
All D/C instructions to patient, patient signed D/C form, no questions or concerns expressed. patient off unit at this time accompanied with significant other
== END 2022-11-23 13:25 | disposition home or self-care (01) ==
LOC: ER 09:51 → ICU 12:13
PROVIDERS: Admitting Provider Internal Medicine; Emergency Provider Family Medicine; Visit Provider Internal Medicine
DX: R09.02 Hypoxemia (principal); T40.411A Poisoning by fentanyl or fentanyl analogs, accidental (unintentional), initial encounter; B19.20 Unspecified viral hepatitis C without hepatic coma; F11.20 Opioid dependence, uncomplicated; F17.210 Nicotine dependence, cigarettes, uncomplicated; I45.10 Unspecified right bundle-branch block
CPT/HCPCS: 36416; 36600; 71045; 80051; 80053; 80306; 80307; 81001; 82330; 82805; 82962; 85025; 93005; 96365; 96366; 96375; 99285; G0378; J2405; J7030